=== PATIENT | female | born 1985 | race Caucasian/White ===

== ENCOUNTER 2017-10-17 16:48 | Emergency (ER) | payer MEDICAID ==
[~2017-10-17] VITALS: Ht 165.1 cm; Wt 63.5 kg
[2017-10-18] MEDS ORDERED: IBUPROFEN 800MG TABLET PO ONE (00:15)
[2017-10-18 00:17] VITALS: BP 125/71
== END 2017-10-18 01:55 | disposition home or self-care (01) ==
LOC: ER 16:57
DX: S39.012A Strain of muscle, fascia and tendon of lower back, initial encounter (principal); M54.2 Cervicalgia; V43.52XA Car driver injured in collision with other type car in traffic accident, initial encounter; Y93.89 Activity, other specified; Y92.410 Unspecified street and highway as the place of occurrence of the external cause
CPT/HCPCS: 72110; 81025; 99284